=== PATIENT | female | born 1985 | race Caucasian/White ===

== ENCOUNTER 2018-10-03 06:00 | Inpatient (IN) | payer OTHER ==
[~2018-10-03] VITALS: Ht 157.5 cm; Wt 65.8 kg
[~2018-10-03 06:00] MED LIST: FOLIC ACID0.4 MG PO; PRENATAL1 TAB PO
== END 2018-10-04 12:28 | DRG 743 ==
LOC: CIR.AMB 06:00 → O/R 13:42 → OB/GYN 14:29
PROVIDERS: ADMIT Obstetrics & Gynecology
PROC: 0DNW0ZZ Release Peritoneum, Open Approach (ICD-10-PCS; 2018-10-03)
PROC: 0UT70ZZ Resection of Bilateral Fallopian Tubes, Open Approach (ICD-10-PCS; principal; 2018-10-03 07:00)
DX: Z30.2 Encounter for sterilization (principal); N73.6 Female pelvic peritoneal adhesions (postinfective)